=== PATIENT | female | born 1950 | race African-American/Black ===

== ENCOUNTER 2017-12-29 18:36 | Emergency (ER) | payer MEDICARE, MEDICAID ==
[~2017-12-29] VITALS: Ht 162.6 cm; Wt 118.0 kg
[2017-12-29] MEDS ORDERED: MECLIZINE 25MG TABLET PO ONE (22:30)
[2017-12-29 23:09] LABS: BASOPHILS % 1.3 % (0.0-2.0); EOSINOPHILS % 6.3 % (0.0-5.0); HEMATOCRIT. 40.6 % (36.0-48.0); LYMPHOCYTES % 37.1 % (20.0-50.0); MEAN CORPUSCULAR HEMOGLOBIN 25.9 pg (28.0-32.0); MEAN CORPUSCULAR VOLUME 80.9 fL (81.0-99.0); MEAN PLATELET VOLUME 9.7 fl (7.4-10.4); MONOCYTES % 6.6 % (2.0-8.0); NEUTROPHILS % 48.7 % (40.0-76.0); PLATELET 290 x1000/uL (130-400); RED BLOOD CELL COUNT 5.02 mill/uL (4.2-5.4); RED CELL DISTRIBUTION WIDTH 15.1 % (11.6-14.6)
[2017-12-29 23:14] LABS: CHLORIDE 109 mEq/L (98-107)
[2017-12-29 23:16] LABS: INR 1.1; PROTHROMBIN TIME 11.2 sec (9.4-11.6)
[2017-12-29 23:24] LABS: TROPONIN I < 0.02 ng/mL (0.00-0.04)
[2017-12-30 01:24] VITALS: BP 142/74
== END 2017-12-30 01:55 | disposition home or self-care (01) ==
LOC: ER 20:57
DX: S06.0X0A Concussion without loss of consciousness, initial encounter (principal); I51.7 Cardiomegaly; I11.9 Hypertensive heart disease without heart failure; E78.00 Pure hypercholesterolemia, unspecified; E11.9 Type 2 diabetes mellitus without complications; H40.9 Unspecified glaucoma; R42 Dizziness and giddiness; R07.9 Chest pain, unspecified; Z88.0 Allergy status to penicillin
CPT/HCPCS: 36415; 70450; 71045; 72125; 80053; 83880; 84484; 85025; 85610; 93005; 99285; J7040; J8597

== ENCOUNTER 2018-01-13 11:18 | Inpatient (IN) | payer MEDICARE, MEDICAID ==
[~2018-01-13] VITALS: Ht 162.6 cm; Wt 115.9 kg
[2018-01-13] MEDS ORDERED: SODIUM CHLORIDE 0.9% 1,000 ML IV ONE (11:54)
[2018-01-13 12:26] LABS: BG BASE EXCESS -11.7 mmol/L (-2.0-2.0); BG CARBOXYHEMOGLOBIN 0.5 % (0.5-1.5); BG DEOXYHEMOGLOBIN 3.7 % (0.0-5.0); BG HCO3 ACT 11.5 mmol/L (22.0-26.0); BG OXYGEN SATURATION 96.3 % (92.0-98.5); BG OXYHEMOGLOBIN 95.8 % (94.0-97.0); BG PCO2 20.2 mmHg (35.0-45.0); BG PH 7.373 (7.350-7.450); BG PO2 84.8 mmHg (75.0-100.0); BG SAMPLE SITE LEFT BRACHIAL; BG TOTAL HEMOGLOBIN 11.6 g/dL (12.0-18.0); BG VENT MODE ROOM AIR
[2018-01-13 12:40] LABS: HEMATOCRIT. 34.5 % (36.0-48.0); HEMOGLOBIN. 11.2 g/dL (12.0-16.0); MEAN CORPUSCULAR HEMOGLOBIN 25.7 pg (28.0-32.0); MEAN CORPUSCULAR VOLUME 78.8 fL (81.0-99.0); MEAN PLATELET VOLUME 11.1 fl (7.4-10.4); PLATELET 85 x1000/uL (130-400); RED BLOOD CELL COUNT 4.38 mill/uL (4.2-5.4); RED CELL DISTRIBUTION WIDTH 15.9 % (11.6-14.6)
[2018-01-13 12:44] LABS: INR 1.2; PROTHROMBIN TIME 12.1 sec (9.4-11.6)
[2018-01-13 12:49] LABS: CHLORIDE 102 mEq/L (98-107)
[2018-01-13 12:55] LABS: TROPONIN I 0.07 ng/mL (0.00-0.04)
[2018-01-13 13:14] LABS: PLATELET ESTIMATE DECREASED
[2018-01-13] MEDS ORDERED: INSULIN REGULAR (HUMULIN R) UD 100 UNITS/ML SYR SUBCUT ONE (13:15)
[2018-01-13] MEDS ORDERED: SODIUM CHLORIDE 0.9% 1000ML BAG (SEPSIS BOLUS) IV ONE (13:15)
[2018-01-13] MEDS ORDERED: ALBUTEROL (0.083%) 2.5MG/3ML NEB HHN STA (13:20)
[2018-01-13] MEDS ORDERED: DEXTROSE 50% WATER 50ML SYRINGE IV ONE (13:30)
[2018-01-13] MEDS ORDERED: VANCOMYCIN 1 G PREMIX 200 ML IV ONE (13:30)
[2018-01-13] MEDS ORDERED: SODIUM POLYSTYRENE SULFONATE 15 G/60 ML BOT PO ONE (13:30)
[2018-01-13] MEDS ORDERED: INSULIN REGULAR (HUMULIN R) 300UNITS/3ML IV ONE (13:30)
[2018-01-13] MEDS ORDERED: MEROPENEM 1,000 MG in SODIUM CHLORIDE 0.9% 100 ML IV ONE (13:30)
[2018-01-13 13:32] LABS: CLARITY URINE TURBID (CLEAR); COLOR URINE YELLOW (YELLOW); KETONES URINE NEGATIVE (NEGATIVE); LEUKOCYTE ESTERASE URINE 3+ (NEGATIVE); NITRITE URINE NEGATIVE (NEGATIVE); OCCULT BLOOD URINE 3+ (NEGATIVE); PROTEIN URINE 1+ (NEGATIVE); SPECIFIC GRAVITY URINE 1.018 (1.005-1.030); UROBILINOGEN URINE 0.2 E.U./dL (0.2-1.0)
[2018-01-13] MEDS ORDERED: INSULIN REGULAR (HUMULIN R) 300UNITS/3ML SUBCUT ONE (13:45)
[2018-01-13] MEDS ORDERED: OSELTAMIVIR 75MG CAPSULE PO ONE (14:30)
[2018-01-13] MEDS ORDERED: MORPHINE SULFATE 4 MG/ML CPJ (NOT FOR IM USE) IV PRN (17:15)
[2018-01-13] MEDS ORDERED: MAGNESIUM/ALUMINUM HYDROXIDE/SIMETHICONE 30ML UDC PO PRN (17:15)
[2018-01-13] MEDS ORDERED: DOCUSATE SODIUM 100MG CAPSULE PO PRN (17:15)
[2018-01-13] MEDS ORDERED: ACETAMINOPHEN 325MG TABLET PO PRN (17:15)
[2018-01-13] MEDS ORDERED: DIPHENHYDRAMINE 50MG/ML VIAL IV PRN (17:15)
[2018-01-13] MEDS ORDERED: ONDANSETRON HCL 4MG/2ML VIAL IV PRN (17:15)
[2018-01-13] MEDS ORDERED: CLONIDINE 0.1MG TABLET PO PRN (17:15)
[2018-01-13] MEDS ORDERED: INSULIN REGULAR (HUMULIN R) 300UNITS/3ML SUBCUT NR (18:00)
[2018-01-14 00:36] LABS: CREATINE KINASE MB FRACTION 0.8 ng/mL (0.5-3.6); TROPONIN I 0.08 ng/mL (0.00-0.04)
[2018-01-14] MEDS: GUAIFENESIN 200MG/10ML SUGAR FREE UDC PO PRN ×3 (00:47→23:09)
[2018-01-14 04:15] VITALS: BP 105/57
[2018-01-14] MEDS ORDERED: LEVOFLOXACIN 500MG PREMIX 100 ML IV NR (06:00)
[2018-01-14] MEDS ORDERED: INSULIN GLARGINE UD 100 UNITS/ML SYR SUBCUT NR ×2 (06:00→12:30)
[2018-01-14 08:00] VITALS: BP 132/53
[2018-01-14 08:57] LABS: HEMATOCRIT. 33.7 % (36.0-48.0); MEAN CORPUSCULAR HEMOGLOBIN 25.5 pg (28.0-32.0); MEAN CORPUSCULAR VOLUME 78.4 fL (81.0-99.0); RED BLOOD CELL COUNT 4.29 mill/uL (4.2-5.4); RED CELL DISTRIBUTION WIDTH 16.5 % (11.6-14.6)
[2018-01-14] MEDS ORDERED: AMLODIPINE 10MG TABLET PO SCH (09:00)
[2018-01-14 09:18] LABS: CHLORIDE 110 mEq/L (98-107)
[2018-01-14 09:25] LABS: CREATINE KINASE 136 IU/L (26-192); HDL CHOLESTEROL 7 mg/dL (40-59); LDL CHOLESTEROL 48 mg/dL (5-100)
[2018-01-14 09:27] LABS: MEAN PLATELET VOLUME 11.1 fl (7.4-10.4); PLATELET 59 x1000/uL (130-400); PLATELET ESTIMATE DECREASED
[2018-01-14] MEDS: SODIUM CHLORIDE 0.9% 1,000 ML IV SCH ×2 (09:39→16:22)
[2018-01-14] MEDS: ASPIRIN 81MG EC TABLET PO SCH (09:40)
[2018-01-14] MEDS: OSELTAMIVIR 30MG CAPSULE PO SCH (09:40)
[2018-01-14] MEDS ORDERED: DEXTROSE 50% WATER 50ML SYRINGE IV PRN (10:00)
[2018-01-14] MEDS: INSULIN LISPRO 100 UNITS/ML SUBCUT SCH ×4 (10:57→23:20)
[2018-01-14] MEDS ORDERED: VANCOMYCIN 1500MG in DEXTROSE 5% WATER 250ML IV SCH (11:00)
[2018-01-14 12:00] VITALS: BP 137/54
[2018-01-14] MEDS: BLOOD SUGAR DIAGNOSTIC STRIP TEST SCH ×3 (12:16→21:00)
[2018-01-14] MEDS ORDERED: PIPERACILLIN/TAZ 3.375G PREMIX 50 ML IV SCH (14:00)
[2018-01-14] MEDS ORDERED: AZTREONAM 2 GM in DEXT 5% WATER 100 ML IV SCH (15:00)
[2018-01-14] MEDS ORDERED: AZTREONAM 2 GM in DEXT 5% WATER 100 ML IV NR (16:00)
[2018-01-14 16:29] LABS: BETA HYDROXYBUTYRATE 0.2 mMol/L (0.0-0.3)
[2018-01-14 18:28] LABS: BETA HYDROXYBUTYRATE 0.3 mMol/L (0.0-0.3)
[2018-01-14 19:11] LABS: BG BASE EXCESS -10.6 mmol/L (-2.0-2.0); BG CARBOXYHEMOGLOBIN 1.3 % (0.5-1.5); BG DEOXYHEMOGLOBIN 13.5 % (0.0-5.0); BG FRACTION INSPIRED OXYGEN 32; BG HCO3 ACT 12.9 mmol/L (22.0-26.0); BG METHEMOGLOBIN 0.3 % (0.0-1.5); BG OXYGEN SATURATION 86.3 % (92.0-98.5); BG OXYHEMOGLOBIN 84.9 % (94.0-97.0); BG PCO2 22.7 mmHg (35.0-45.0); BG PH 7.371 (7.350-7.450); BG PO2 51.8 mmHg (75.0-100.0); BG SAMPLE SITE RIGHT BRACHIAL; BG TOTAL HEMOGLOBIN 11.5 g/dL (12.0-18.0); BG VENT MODE NASAL CANNULA
[2018-01-14 20:00] VITALS: BP 103/40
[2018-01-14] MEDS ORDERED: INSULIN GLARGINE UD 100 UNITS/ML SYR SUBCUT SCH ×3 (22:00)
[2018-01-15] VITALS (40 sets, daily range): BP systolic 36–154; BP diastolic 17–111
[2018-01-15] MEDS: LORAZEPAM 1MG TABLET PO PRN ×2 (01:08→05:35)
[2018-01-15] MEDS: SODIUM CHLORIDE 0.9% 1,000 ML IV SCH ×2 (01:09→11:11)
[2018-01-15] MEDS ORDERED: AZTREONAM 1G in DEXTROSE 5% WATER 50ML IV SCH (04:00)
[2018-01-15] MEDS: BLOOD SUGAR DIAGNOSTIC STRIP TEST SCH ×3 (05:26→11:10)
[2018-01-15] MEDS: INSULIN LISPRO 100 UNITS/ML SUBCUT SCH ×3 (05:54→12:47)
[2018-01-15 07:54] LABS: BG BASE EXCESS -13.5 mmol/L (-2.0-2.0); BG BILEVEL POS AIRWAY PRESSURE 15/5; BG DEOXYHEMOGLOBIN 0.6 % (0.0-5.0); BG HCO3 ACT 13.3 mmol/L (22.0-26.0); BG METHEMOGLOBIN 0.1 % (0.0-1.5); BG OXYGEN SATURATION 99.4 % (92.0-98.5); BG OXYHEMOGLOBIN 98.3 % (94.0-97.0); BG PCO2 34.3 mmHg (35.0-45.0); BG PH 7.208 (7.350-7.450); BG PO2 373.4 mmHg (75.0-100.0); BG SAMPLE SITE RIGHT BRACHIAL; BG TOTAL HEMOGLOBIN 10.8 g/dL (12.0-18.0); BG VENT MODE MASK - BIPAP; BG VENT RATE 12 set
[2018-01-15] MEDS ORDERED: SODIUM BICARBONATE 8.4% 1 MEQ/ML 50ML SYR IV ONE ×2 (08:30→12:15)
[2018-01-15] MEDS: ASPIRIN 81MG EC TABLET PO SCH (09:00)
[2018-01-15] MEDS: OSELTAMIVIR 30MG CAPSULE PO SCH (09:00)
[2018-01-15 09:49] LABS: HEMATOCRIT. 30.2 % (36.0-48.0); HEMOGLOBIN. 9.7 g/dL (12.0-16.0); MEAN CORPUSCULAR HEMOGLOBIN 25.1 pg (28.0-32.0); RED BLOOD CELL COUNT 3.88 mill/uL (4.2-5.4); RED CELL DISTRIBUTION WIDTH 16.4 % (11.6-14.6)
[2018-01-15 10:07] LABS: CHLORIDE 111 mEq/L (98-107)
[2018-01-15 10:11] LABS: PHOSPHORUS 5.2 mg/dL (2.5-4.9); TOTAL IRON BINDING CAPACITY 299 ug/dL (250-450)
[2018-01-15] MEDS ORDERED: PROPOFOL 10MG/ML 100ML 100 ML IV PRN (10:15)
[2018-01-15 10:30] LABS: PLATELET 35 x1000/uL (130-400)
[2018-01-15 10:32] LABS: NUCLEATED RED BLOOD CELLS 1 /100 WBC; PLATELET ESTIMATE MARKEDLY DECREASED
[2018-01-15] MEDS: NOREPINEPHRINE 16 MG in DEXT 5% WATER 234 ML IV PRN ×2 (11:25→11:56)
[2018-01-15] MEDS ORDERED: LIDOCAINE HCL 1% 20ML VIAL (Pyxis) INJ ONE (11:29)
[2018-01-15] MEDS ORDERED: AMIODARONE HCL 900 MG in DEXT 5% WATER 500 ML IV PRN (12:00)
[2018-01-15] MEDS ORDERED: PANTOPRAZOLE SODIUM 40 MG/VIAL IV SCH (12:00)
[2018-01-15] MEDS ORDERED: PHENYLEPHRINE 40MG in DEXT 5% WATER 250ML (QUADRUPLE CONC) IV PRN (12:00)
[2018-01-15 12:04] LABS: BG BASE EXCESS -20.7 mmol/L (-2.0-2.0); BG CARBOXYHEMOGLOBIN 0.3 % (0.5-1.5); BG DEOXYHEMOGLOBIN 2.1 % (0.0-5.0); BG HCO3 ACT 9.8 mmol/L (22.0-26.0); BG METHEMOGLOBIN 0.6 % (0.0-1.5); BG OXYGEN SATURATION 97.9 % (92.0-98.5); BG PCO2 43.4 mmHg (35.0-45.0); BG PH 6.971 (7.350-7.450); BG PO2 162.8 mmHg (75.0-100.0); BG SAMPLE SITE LEFT RADIAL; BG TIDAL VOLUME(mL) 550 mL; BG TOTAL HEMOGLOBIN 8.3 g/dL (12.0-18.0); BG VENT MODE VENT - A/C; BG VENT RATE 18 set
[2018-01-15] MEDS ORDERED: SODIUM BICARBONATE 150 MEQ in DEXTROSE 5% WATER 1,000 ML IV SCH (12:15)
[2018-01-15] MEDS ORDERED: DEXTROSE 50% WATER 50ML SYRINGE IV ONE (13:14)
[2018-01-15] MEDS ORDERED: EPINEPHRINE 0.1MG/ML (1:10,000) 10ML SYR ONE (13:14)
[2018-01-15] MEDS ORDERED: NALOXONE HCL 0.4 MG/ML 1ML VIAL ONE (13:14)
[2018-01-15] MEDS ORDERED: ETOMIDATE 2MG/ML 10ML VIAL IV ONE (13:14)
[2018-01-15] MEDS ORDERED: LIDOCAINE HCL 2% 5ML SYRINGE IV ONE (13:14)
[2018-01-15] MEDS ORDERED: CALCIUM CHLORIDE 1GM/10ML SYR IV ONE (13:14)
[2018-01-15] MEDS ORDERED: MAGNESIUM SULFATE 4G IN WATER 100ML PREMIX IV ONE (13:14)
[2018-01-15] MEDS ORDERED: ATROPINE SULFATE 1MG/10ML SYR ONE (13:14)
[2018-01-15] MEDS ORDERED: SUCCINYLCHOLINE CHLORIDE 200MG/10ML VIAL IV ONE (13:14)
[2018-01-15] MEDS ORDERED: AMIODARONE HCL 50MG/ML 3ML VIAL IV ONE (13:14)
[2018-01-15] MEDS ORDERED: SODIUM BICARBONATE 7.5% 0.9 MEQ/ML 50ML SYR IV ONE (13:14)
[2018-01-15 13:31] LABS: HEMATOCRIT. 21.6 % (36.0-48.0); MEAN CORPUSCULAR HEMOGLOBIN 25.8 pg (28.0-32.0); MEAN CORPUSCULAR VOLUME 82.5 fL (81.0-99.0); MEAN PLATELET VOLUME 9.6 fl (7.4-10.4); RED BLOOD CELL COUNT 2.62 mill/uL (4.2-5.4); RED CELL DISTRIBUTION WIDTH 16.8 % (11.6-14.6)
[2018-01-15 13:40] LABS: CHLORIDE 108 mEq/L (98-107)
[2018-01-15] MEDS ORDERED: DOPAMINE 400MG PREMIX 250 ML IV PRN (13:45)
[2018-01-15] MEDS ORDERED: VANCOMYCIN 1 G PREMIX 200 ML IV SCH (14:00)
[2018-01-15] MEDS ORDERED: VASOPRESSIN 10 UNIT in SODIUM CHLORIDE 0.9% 99.5 ML IV PRN (14:15)
[2018-01-15 14:30] LABS: HEMOGLOBIN. 6.8 g/dL (12.0-16.0); PLATELET 33 x1000/uL (130-400)
[2018-01-15] MEDS ORDERED: AZITHROMYCIN 500 MG in DEXT 5% WATER 250 ML IV SCH (14:30)
[2018-01-15 14:36] LABS: NUCLEATED RED BLOOD CELLS 1 /100 WBC; PLATELET ESTIMATE MARKEDLY DECREASED
[2018-01-16] MEDS ORDERED: LEVOFLOXACIN 250MG PREMIX 50 ML IV SCH (06:00)
[2018-01-16] MEDS ORDERED: LEVOFLOXACIN 500MG PREMIX 100 ML IV SCH (11:00)
[2018-01-16] MEDS ORDERED: LEVOFLOXACIN 750MG PREMIX 150 ML IV SCH (11:00)
== END 2018-01-15 18:00 | disposition expired | DRG 720 ==
LOC: ER 11:18 → 5WST 13:23 → EDBEDREQ 13:26 → SUPCPDRO 17:08 → ENRESERV 01-14 03:23 → 5EST 01-15 06:45 → MICUNO 01-15 10:25
PROVIDERS: ADMIT Hospitalist; ATTEND Hospitalist
PROC: 02HV33Z Insertion of Infusion Device into Superior Vena Cava, Percutaneous Approach (ICD-10-PCS; principal; 2018-01-15)
PROC: 5A1935Z Respiratory Ventilation, Less than 24 Consecutive Hours (ICD-10-PCS; 2018-01-15)
PROC: 0BH17EZ Insertion of Endotracheal Airway into Trachea, Via Natural or Artificial Opening (ICD-10-PCS; 2018-01-15)
PROC: 5A09357 Assistance with Respiratory Ventilation, Less than 24 Consecutive Hours, Continuous Positive Airway Pressure (ICD-10-PCS; 2018-01-15)
DX: A41.9 Sepsis, unspecified organism (principal); J96.00 Acute respiratory failure, unspecified whether with hypoxia or hypercapnia; I46.9 Cardiac arrest, cause unspecified; N17.0 Acute kidney failure with tubular necrosis; R65.21 Severe sepsis with septic shock; D68.59 Other primary thrombophilia; E87.2 Acidosis; E11.22 Type 2 diabetes mellitus with diabetic chronic kidney disease; D69.6 Thrombocytopenia, unspecified; E87.5 Hyperkalemia; D57.1 Sickle-cell disease without crisis; K85.90 Acute pancreatitis without necrosis or infection, unspecified; B96.89 Other specified bacterial agents as the cause of diseases classified elsewhere; E78.00 Pure hypercholesterolemia, unspecified; E78.5 Hyperlipidemia, unspecified; I25.10 Atherosclerotic heart disease of native coronary artery without angina pectoris; J10.1 Influenza due to other identified influenza virus with other respiratory manifestations; N18.9 Chronic kidney disease, unspecified; N39.0 Urinary tract infection, site not specified; Z90.710 Acquired absence of both cervix and uterus; I12.9 Hypertensive chronic kidney disease with stage 1 through stage 4 chronic kidney disease, or unspecified chronic kidney disease; Z88.0 Allergy status to penicillin; D64.9 Anemia, unspecified; R74.0 Nonspecific elevation of levels of transaminase and lactic acid dehydrogenase [LDH]; E66.01 Morbid (severe) obesity due to excess calories; Z68.41 Body mass index [BMI] 40.0-44.9, adult; E11.10 Type 2 diabetes mellitus with ketoacidosis without coma
CPT/HCPCS: 36415; 36600; 71045; 80048; 80053; 80061; 80202; 81003; 82010; 82375; 82550; 82553; 82728; 82805; 82962; 83036; 83540; 83550; 83605; 83690; 83735; 83880; 83970; 84100; 84484; 85025; 85610; 87040; 87077; 87086; 87186; 87804; 92950; 93005; 93306; 93970; 94002; 94640; 94660; 96365; 96366; 96375; 99291; C9113; J0171; J0282; J0330; J0456; J0461; J1200; J1815; J1956; J2185; J2270; J2310; J2370; J2704; J3370; J3475; J3490; J7030; J7050; J7060; J7070; J7611; A4315